=== PATIENT | female | born 1985 | race Caucasian/White ===

== ENCOUNTER 2016-07-22 20:44 | Emergency (ER) | payer OTHER ==
[~2016-07-22] VITALS: Ht 162.6 cm; Wt 59.0 kg
[~2016-07-22 20:44] MED LIST: ADACEL IM; HYDRALAZINE HCL25 MG PO; IBUPROFEN800 M1 PO; IBUPROFEN800 MG PO; MOTRIN800 MG PO; NOR-QD0.35 MG PO; OMNICEF300 MG PO; PERCOCET 325 MG1 TA2 PO; PREDNISOLO15 MG/5 M1 PO; PRENATAL1 TA2 PO; REGLAN10 M1 PO; RHINOCORT0.032 MG/2 NASB; TRAMADOL HCL50 M1 PO; TRAMADOL50 MG PO; ZOFRAN 4 MG TABL4 MG PO; ZOFRAN ODT4 MG PO; ZOFRAN4 M1 SL
[2016-07-22] MEDS ORDERED: BUSPIRONE HCL7.5 M1 PO (21:08)
[2016-07-22] MEDS ORDERED: LORATADINE10 M1 PO (21:08)
[2016-07-22] MEDS ORDERED: CLONAZEPAM0.5 M2 PO (21:09)
[2016-07-22] MEDS ORDERED: FLUTICASONE P15.8 ML (21:09)
[2016-07-22] MEDS ORDERED: TRAZODONE HCL50 M1 (21:09)
[2016-07-22] MEDS ORDERED: MIRENA1 EACH (21:09)
--- NOTE | 2016-07-22 21:22 | ED GI/GU/ABDOMINAL COMPLAINT ---
History of Present Illness General Chief Complaint: Female Urogenital Problems Stated Complaint: ?UPPER BACK PAIN/BLOOD IN URINE Source: patient, old records Exam Limitations: no limitations Vital Signs & Intake/Output Vital Signs & Intake/Output Vital Signs Date Time Temp Pulse Resp B/P B/P Pulse O2 O2 Flow FiO2 Mean Ox Delivery Rate 07/22 2053 98.3 83 18 113/79 96 Room Air Allergies Coded Allergies: latex (Intermediate, SWELLING AND RASH 05/02/15) Penicillins (YEAST INFECTION - SEVERE 07/22/16) divalproex sodium (NAUSEA 05/02/15) Reconcile Medications Buspirone HCl 7.5 MG TABLET 1 TAB PO BID MENTAL HEALTH (Reported) Clonazepam 0.5 MG TABLET 1 TAB PO PRN ANXIETY (Reported) Fluticasone Propionate (Unknown Strength) SPRAY.SUSP (Unknown Dose) UNKNOWN ( Reported) HYDRALAZINE HCL (Hydralazine HCl) 25 MG TABLET 1 TAB PO BID BLOOD PRESSURE Ibuprofen (Motrin) 800 MG TAB 1 TAB PO TID PRN PAIN Ibuprofen 800 MG TABLET 1 TAB PO Q8 PRN PAIN/fevers Levonorgestrel (Mirena) 20 MCG/24 HOUR (5 YEARS) IUD CONTROL (Reported) Loratadine 10 MG TABLET 1 TAB PO DAILY ALLERGIES (Reported) Metoclopramide HCl (Reglan) 10 MG TABLET 1 TAB PO TID PRN nausea 30 minutes before meals and bedtime Norethindrone (Nor-Qd) 0.35 MG TAB 1 TAB PO DAILY BC (Reported) Norethindrone (Nor-Qd) 0.35 MG TAB 2 TAB PO DAILY DUB Ondansetron (Zofran Odt) 4 MG ODT 1 TAB SL Q8HR PRN NAUSEA Ondansetron (Zofran Odt) 4 MG ODT 1 TAB PO Q8P PRN NAUSEA OXYCODONE HCL/ACETAMINOPHEN (Percocet 5-325 MG Tablet) 325 MG/5 MG TAB 1 TAB PO Q4-6 PRN PRN PAIN OXYCODONE HCL/ACETAMINOPHEN (Percocet 5-325 MG Tablet) 325 MG/5 MG TAB 1-2 TAB PO Q4-6 PRN PRN PAIN Tramadol HCl 50 MG TABLET 1-2 TAB PO Q8 PRN pain Trazodone HCl (Unknown Strength) TABLET (Unknown Dose) UNKNOWN (Reported) Triage Note: PT TO ED C/O RT FLANK PAIN, HEMATURIA AND "PAIN IN BLADDER" FOR 1 HR. PMH OF KIDNEY STONES Triage Nurses Notes Reviewed? yes ? N Is pt currently ? No HPI: Patient woke up from a nap this afternoon, it is very usual for her to take a nap during the day, and she noticed some discomfort in her right flank that was radiating towards her bladder. Patient then went to the bathroom and noticed hematuria with clots. There are no fevers or chills. She has crampy pain in her right CVA area and a pressure sensation over her bladder. Positive urinary frequency and urgency. Positive dysuria. Positive hematuria. Slight nausea but no vomiting. No fevers or chills. She rates the pain as 3 out of 10. Past History Travel History Traveled to [place] past 21 day No Medical History Any Pertinent Medical History? 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 FH: CAD (coronary artery disease) MOTHER FH: diabetes in MATERNAL GRANDMOTHER FH: breast cancer FH: CAD (coronary artery disease) PATERNAL GRANDMOTHER Hx Contributory? No Review of Systems Review of Systems Constitutional: Reports: see HPI, chills. EENTM: Reports: no symptoms. Respiratory: Reports: no symptoms. Cardiovascular: Reports: no symptoms. GI: Reports: see HPI, abdominal pain, nausea. Genitourinary: Reports: see HPI, dysuria, hematuria, urgency. Musculoskeletal: Reports: see HPI, back pain. Skin: Reports: no symptoms. Neurological/Psychological: Reports: no symptoms. Hematologic/Endocrine: Reports: no symptoms. Immunologic/Allergic: Reports: no symptoms. All Other Systems: Reviewed and Negative Physical Exam Physical Exam General Appearance: well developed/nourished, alert, awake Head: atraumatic, normal appearance Eyes: Bilateral: PERRL, EOMI. Ears, Nose, Throat, Mouth: hearing grossly normal, moist mucous membrane Neck: normal inspection, supple, full range of motion Respiratory: normal breath sounds, chest non-tender, no respiratory distress, lungs clear Cardiovascular: regular rate/rhythm, normal peripheral pulses Gastrointestinal: normal bowel sounds, soft, non-tender, no organomegaly Back: CVA tenderness (R) Extremities: normal range of motion Neurologic/Psych: no motor/sensory deficits, awake, alert, oriented x 3, normal mood/affect Skin: intact, normal color, warm/dry Core Measures ACS in differential dx? No Severe Sepsis Present: No Septic Shock Present: No Progress Differential Diagnosis: ectopic , intrauterine , kidney stone, threatened AB, UTI/pyelo Plan of Care: Orders Procedure Date/time Status URINE 07/23 2047 Complete URINALYSIS 07/23 2047 Complete Current Medications Sig/Dariana Start time Last Medication Dose Stop Time Status Admin Sodium Chloride 1,000 ML BOLUS ONE 07/22 2129 AC 07/22 (Normal Saline 0.9%) 07/22 Laboratory Tests 07/22/162103: Urinalysis LIGHT H, Urine Color YEL, Urine Clarity CLDY H, Urine pH 6.0, Ur Specific [place] >= 1.030, Urine Protein 100 H, Urine Ketones NEG, Urine Nitrite POS H, Urine Bilirubin NEG, Urine Urobilinogen 1.0, Ur Leukocyte Esterase MOD H, Ur Microscopic SEDIMENT EXAMINED, Urine RBC 50-75 H, Urine WBC > 75 H, Ur Epithelial Cells FEW, Urine Bacteria PACKD H, Urine Mucus MOD H, Urine Hemoglobin LARGE H, Urine Glucose NEG, Urine Test NEGATIVE Diagnostic Imaging: Viewed by Me: CT Scan. Discussed w/RAD: CT Scan. Radiology Impression: PATIENT: CHUCK VEGA PRESENT AGE: 30 PATIENT ACCOUNT NO: [id number] : 83 LOCATION: [facility] ORDERING PHYSICIAN: RICHARD WALKER MD SERVICE DATE: 07/22/16-2128 EXAM TYPE: CAT - CT ABD & PELVIS W/O IV CONTRAS EXAMINATION: CT ABDOMEN AND PELVIS WITHOUT CONTRAST CLINICAL INFORMATION: Right flank pain COMPARISON: 10/17/2015 TECHNIQUE : Multidetector volumetric imaging was performed from the superior aspect of the liver through the pubic symphysis. Sagittal and coronal reformatted images were obtained on the technologist's workstation. DLP: 255 mGy-cm FINDINGS: LUNG BASES : The visualized lung bases are unremarkable. LIVER, GALLBLADDER, AND BILIARY TREE: The liver is normal in size, shape, and attenuation. No focal hepatic lesion or biliary ductal dilatation is present. The gallbladder is contracted with no evidence of radiopaque gallstones, gallbladder wall thickening, or obvious pericholecystic inflammatory changes. PANCREAS: Unremarkable. SPLEEN: Unremarkable. ADRENAL GLANDS: Unremarkable. KIDNEYS AND URETERS: The kidneys are normal in size, shape, and attenuation. No hydronephrosis or hydroureter. No perinephric stranding. There is a 0.2 cm right midpole calculus 5 cm from the posterior axillary line. No additional renal calculi. BLADDER: Unremarkable. GASTROINTESTINAL TRACT: The stomach and small bowel are unremarkable. No dilated loops of bowel or evidence of obstruction. No colonic wall thickening or inflammatory change. The appendix is not well seen. No free air or free fluid. ABDOMINAL WALL: No significant hernia is appreciated. LYMPH NODES: Normal. VASCULAR: Unremarkable. PELVIC VISCERA: An IUD is in place. No adnexal mass. OSSEOUS STRUCTURES: No acute or suspicious osseous abnormality. IMPRESSION: No hydronephrosis. Tiny right midpole renal calculus. DICTATED BY: MARIIA ZHANG MD DATE/TIME DICTATED:07/22/162150 CONTRACT NEGOTIATION MANAGER:SANJUANA DATE/TIME TRANSCRIBED:07/22/162150 CONFIDENTIAL, DO NOT COPY WITHOUT APPROPRIATE AUTHORIZATION. <Electronically signed in Other Vendor System> SIGNED BY: LEATHA LICONA,MARIIA 07/22/16 2200 Initial ED EKG: none Departure Departure Disposition: HOME OR SELF CARE Condition: Stable Clinical Impression Primary Impression: Pyelonephritis Referrals: THAIS MEDINA APRN (PCP/Family) Additional Instructions: DRINK PLENTY OF FLUIDS TAKE ANTIBIOTICS PRESCRIBED TAKE ANTINAUSEA MEDICATION NEEDED RETURN FOR ANY CONCERNS Departure Forms: Customer Survey General Discharge Information Prescriptions: Current Visit Scripts Sulfamethoxazole/Trimethoprim (Bactrim Ds Tablet) 1 TAB PO BID #20 TAB Ondansetron (Zofran Odt) 1 TAB SL TID PRN NAUSEA #10 TAB
--- NOTE | 2016-07-22 22:00 | CT SCAN REPORT ---
EXAMINATION: CT ABDOMEN AND PELVIS WITHOUT CONTRAST CLINICAL INFORMATION: Right flank pain COMPARISON: 10/17/2015 TECHNIQUE: Multidetector volumetric imaging was performed from the superior aspect of the liver through the pubic symphysis. Sagittal and coronal reformatted images were obtained on the technologist's workstation. DLP: 255 mGy-cm FINDINGS: LUNG BASES: The visualized lung bases are unremarkable. LIVER, GALLBLADDER, AND BILIARY TREE: The liver is normal in size, shape, and attenuation. No focal hepatic lesion or biliary ductal dilatation is present. The gallbladder is contracted with no evidence of radiopaque gallstones, gallbladder wall thickening, or obvious pericholecystic inflammatory changes. PANCREAS: Unremarkable. SPLEEN: Unremarkable. ADRENAL GLANDS: Unremarkable. KIDNEYS AND URETERS: The kidneys are normal in size, shape, and attenuation. No hydronephrosis or hydroureter. No perinephric stranding. There is a 0.2 cm right midpole calculus 5 cm from the posterior axillary line. No additional renal calculi. BLADDER: Unremarkable. GASTROINTESTINAL TRACT: The stomach and small bowel are unremarkable. No dilated loops of bowel or evidence of obstruction. No colonic wall thickening or inflammatory change. The appendix is not well seen. No free air or free fluid. ABDOMINAL WALL: No significant hernia is appreciated. LYMPH NODES: Normal. VASCULAR: Unremarkable. PELVIC VISCERA: An IUD is in place. No adnexal mass. OSSEOUS STRUCTURES: No acute or suspicious osseous abnormality. IMPRESSION: No hydronephrosis. Tiny right midpole renal calculus.
[2016-07-22] MEDS ORDERED: ZOFRAN ODT4 M1 SL (22:09)
[2016-07-22] MEDS ORDERED: BACTRIM DS TAB1 EACH PO (22:09)
[2016-07-22 22:19] VITALS: BP 114/79
== END 2016-07-22 22:27 ==
LOC: ERH 20:44
DX: R10.31 Right lower quadrant pain (principal); N12 Tubulo-interstitial nephritis, not specified as acute or chronic
CPT/HCPCS: 74176; 81001; 81025; 96374; 96375; J0696; J1885; J2405

== ENCOUNTER 2016-08-03 08:22 | Emergency (ER) | payer OTHER ==
[~2016-08-03] VITALS: Ht 162.6 cm; Wt 59.0 kg
[~2016-08-03 08:22] MED LIST changes: +BACTRIM DS TAB1 EACH PO; +BUSPIRONE HCL7.5 M1 PO; +CLONAZEPAM0.5 M2 PO; +FLUTICASONE P15.8 ML; +LORATADINE10 M1 PO; +MIRENA1 EACH; +TRAZODONE HCL50 M1; +ZOFRAN ODT4 M1 SL
--- NOTE | 2016-08-03 08:53 | ED GI/GU/ABDOMINAL COMPLAINT ---
History of Present Illness General Chief Complaint: Abdominal Pain/Flank Pain Stated Complaint: FLANK PAIN Source: patient Exam Limitations: no limitations Vital Signs & Intake/Output Vital Signs & Intake/Output Vital Signs Date Time Temp Pulse Resp B/P B/P Pulse O2 O2 Flow FiO2 Mean Ox Delivery Rate 08/03 1139 96.8 78 18 114/69 99 Room Air 08/03 0840 97.0 87 18 117/81 98 Room Air Allergies Coded Allergies: latex (Intermediate, SWELLING AND RASH 05/02/15) Penicillins (YEAST INFECTION - SEVERE 07/22/16) divalproex sodium (NAUSEA 05/02/15) Reconcile Medications Buspirone HCl 7.5 MG TABLET 1 TAB PO BID MENTAL HEALTH (Reported) Clonazepam 0.5 MG TABLET 1 TAB PO PRN ANXIETY (Reported) Fluconazole (Diflucan) 150 MG TABLET 1 TAB PO ONCE yeast infection Ibuprofen 800 MG TABLET 1 TAB PO Q8 PRN PAIN/fevers Levonorgestrel (Mirena) 20 MCG/24 HOUR (5 YEARS) IUD CONTROL (Reported) Loratadine 10 MG TABLET 1 TAB PO DAILY ALLERGIES (Reported) Naproxen (Naprosyn) 500 MG TABLET 1 TAB PO BID PRN pain Triage Note: C/O MID BACK PAIN WITH NAUSEA SINCE LAST PM. STATES SHE HAD A RECENT KIDNEY INFECTION (07/22) WITH A SMALL STONE INF R KIDNEY. STATES SHE WAS UP ALL NIGHT WITH PAIN. FINISHED ABX 2 DAYS AGO, NOW THINKS SHE HAS YEAST INFECTION. Triage Nurses Notes Reviewed? yes ? n Is pt currently ? No Onset: Gradual Duration: worse persistent since (2 days) Timing: recent history Quality/Severity: moderate Severity Numbers: 7 Location: back Radiation: no radiation Activities at Onset: none No Modifying Factors: none HPI: Patient is a 30-year-old female with history of Graves' disease, kidney stones presenting to the emergency department with chief complaint of bilateral mid back pain that's been going on for the past 2 days. She reports that she was seen and evaluated here approximately 12 days ago, diagnosed with pyelonephritis , treated with Bactrim for 10 days. Last dose of antibiotics was 2 days ago. She was feeling improved, yesterday started with back pain. Denies any urinary frequency urgency or dysuria. Denies any abdominal pain. Positive nausea without vomiting. History of kidney stones in the past, last saw her urologist about a year ago. They did a CT scan on her while she was here 10 days ago and she was told that she has a kidney stone in the right kidney. Decreased by mouth intake today. Denies any chest pain palpitations or shortness of breath. No lower extremity weakness. Denies any trauma. 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 Unsure if this is related to the back pain. Past History Travel History Traveled to [place] past 21 day No Medical History Any Pertinent Medical History? 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 FH: CAD (coronary artery disease) MOTHER FH: diabetes in MATERNAL GRANDMOTHER FH: breast cancer FH: CAD (coronary artery disease) PATERNAL GRANDMOTHER Hx Contributory? No Review of Systems Review of Systems Constitutional: Reports: no symptoms. Comments Review of systems: See HPI, All other systems negative. Constitutional, no chills fever or weight loss HEENT: No visual changes no sore throat no congestion Cardiovascular: No chest pain ,palpitation , orthopnea Skin, no jaundice no rashes Respiratory: No dyspnea cough sputum or hemoptysis GI: no vomiting : No dysuria No hematuria Muscle skeletal: no neck pain, Neurologic: No numbness no confusion no weakness, no amador Psych: No stress anxiety or depression,. Heme/endocrine: No bruising no bleeding no polyuria or polydipsia Immunology: No splenectomy or history of AIDS Physical Exam Physical Exam General Appearance: well developed/nourished, no apparent distress, alert, awake , comfortable Gastrointestinal: normal bowel sounds, soft, non-tender Comments: Well-developed well-nourished person in no acute distress HEENT: Pupils equally round and reactive to light and accommodation. Nose is atraumatic. Pharynx normal. No swelling or edema. Neck: Supple, no lymphadenopathy, normal range of motion without pain or tenderness Back: Right CVA tenderness. Full range of motion, mild tenderness to palpation over the lumbar paraspinal muscles bilaterally. Cardiovascular: Regular rate and rhythms no murmurs rubs or gallops, normal JVP Respiratory: Chest nontender. No respiratory distress.breath sounds clear to auscultation bilaterally Abdomen: Soft, nontender nondistended, no appreciable organomegaly. Normal bowel sounds. No ascites gu: deffered Extremity: No edema Neuro: Alert oriented x3, motor sensory normal Skin: No appreciable rash on exposed skin, skin is warm and dry. Psych: Mood and affect is normal, memory and judgment is normal. Core Measures ACS in differential dx? No Severe Sepsis Present: No Septic Shock Present: No Progress Differential Diagnosis: muscle strain, herniated disc, renal colic, nephrolithiasis, pyelonephritis, hydronephrosis, dehydration, constipation Plan of Care: Orders Procedure Date/time Status Add-on Test (ER Only) 08/03 0932 Active URINE 08/03 0852 Complete CULTURE,URINE 08/03 0848 Active COMPREHENSIVE METABOLIC PANEL 08/03 0845 Complete CBC WITHOUT DIFFERENTIAL 08/03 0845 Complete URINALYSIS 08/03 0844 Complete Current Medications Sig/Dariana Start time Last Medication Dose Stop Time Status Admin Morphine Sulfate 4 MG ONCE ONE 08/03 1100 CAN (Morphine) 08/03 1101 Laboratory Tests 08/03/16 0850: Anion Gap 10, Estimated GFR > 60, BUN/Creatinine Ratio 23.8, Glucose 83, Calcium 9.8, Total Bilirubin 1.1, AST 24, ALT 37, Alkaline Phosphatase 74, Total Protein 7.2, Albumin 4.7, Globulin 2.5, Albumin/Globulin Ratio 1.9, CBC w Diff NO MAN DIFF REQ, RBC 4.96, MCV 95.3, MCH 31.9 H, RDW 12.5, MPV 7.8, Gran % 58.6, Lymphocytes % 30.8, Monocytes % 6.7, Eosinophils % 3.2, Basophils % 0.7, Absolute Granulocytes 3.5, Absolute Lymphocytes 1.9, Absolute Monocytes 0.4, Absolute Eosinophils 0.2, Absolute Basophils 0, PUBS MCHC 33.5 08/03/16 0848: Urine Test NEGATIVE 08/03/16 0848: Urinalysis LIGHT H, Urine Color YEL, Urine Clarity HAZY H, Urine pH 6.5, Ur Specific [place] 1.020, Urine Protein NEG, Urine Ketones NEG, Urine Nitrite NEG, Urine Bilirubin NEG, Urine Urobilinogen 0.2, Ur Leukocyte Esterase SMALL H, Ur Microscopic SEDIMENT EXAMINED, Urine RBC 1-3, Urine WBC 3-5 H, Ur Epithelial Cells MANY H, Urine Bacteria MANY H, Urine Mucus FEW, Urine Hemoglobin NEG, Urine Glucose NEG Microbiology 08/04 847 URINE ROUT: Urine Culture - RECD Diagnostic Imaging: Viewed by Me: Ultrasound. Discussed w/RAD: Ultrasound. Radiology Impression: PATIENT: CHUCK VEGA PRESENT AGE: 30 PATIENT ACCOUNT NO: [id number] : 83 LOCATION: [facility] ORDERING PHYSICIAN: DAFNE NERI SERVICE DATE: 08/03/16 EXAM TYPE: US - US-RENAL/KIDNEY EXAMINATION: US RETROPERITONEAL COMPLETE (RENAL) CLINICAL INFORMATION: Right-sided CVA tenderness, flank pain. History of urolithiasis.. COMPARISON: 05/24/2013 TECHNIQUE: Real-time imaging of the kidneys and bladder. Limited color Doppler imaging is included. Selected static images are provided for interpretation. FINDINGS: RIGHT KIDNEY: 11.5 x 4.3 x 4.8 cm (SAG x AP x TRV) . There are 2 2 to 3 mm bright reflectors in the midpole of the right kidney without posterior acoustic shadowing indeterminate for tiny calculi versus artifact. The kidney is otherwise normal in size, contour, and echogenicity. Renal cortical thickness is normal. No or focal parenchymal lesions. No hydronephrosis. LEFT KIDNEY: 10.1 x 4.6 x 4.5 cm (SAG x AP x TRV). A few scattered similar appearing punctate bright reflectors are identified in the right kidney also raising the question of small calculi, however findings are not definitive. These all measure 2 mm or less. The left kidney is otherwise normal in size, contour, and echogenicity. Renal cortical thickness is normal. No focal parenchymal lesions. No hydronephrosis. BLADDER: Mildly fluid-filled containing a small amount of dependent debris noted by the technologist to move on decubitus imaging. Bilateral ureteral jets are demonstrated. Volumes are not provided. IMPRESSION: Questionable tiny bilateral renal calculi. A single tiny right-sided calculus was identified on recent plain films. DICTATED BY: ANDRE LYNCH MD Initial ED EKG: none Comments: Patient feeling improved after IV fluids and medication. Patient eating without difficulty. She is informed of ultrasound results. No signs of [place]. Urinalysis is not a clean catch, we'll add on urine culture, holding off on providing antibiotics at this time. We will treat symptomatically. She is informed that although there is no signs of hydronephrosis there is a chance that she could have passed a small stone causing symptoms. She will follow-up with urology. Patient will also be treated for yeast infection likely caused from recent antibiotic use. Patient persisted with diffuse infections with antibiotics, did not report this to the previous provider, requesting prescription for Diflucan at this time. She will follow up with primary care physician or return for worsening symptoms. Departure Departure Time of Disposition: 1214 Disposition: HOME OR SELF CARE Condition: Stable Clinical Impression Primary Impression: Back pain Qualifiers: Back pain location: back pain in unspecified location Chronicity: unspecified Back pain laterality: bilateral Qualified Code: M54.9 - Dorsalgia, unspecified Secondary Impressions: Renal colic Referrals: THAIS MEDINA APRN (PCP/Family) Additional Instructions: Follow-up with your urologist, make an appointment. Increase fluids. Take naproxen as prescribed to help with pain. Return for worsening symptoms or concerns. Departure Forms: Customer Survey D/C INS-APPENDICITIS EXCLUSION General Discharge Information Prescriptions: Current Visit Scripts Naproxen (Naprosyn) 1 TAB PO BID PRN pain #20 TAB Fluconazole (Diflucan) 1 TAB PO ONCE #1 TAB Ref 1
[2016-08-03 09:07] LABS: ABSOLUTE BASOPHIL COUNT 0 /CUMM (0.0-0.2); ABSOLUTE EOSINOPHIL COUNT 0.2 /CUMM (0.0-0.7); ABSOLUTE GRANULOCYTE CT 3.5 /CUMM (1.4-6.5); ABSOLUTE LYMPH COUNT 1.9 /CUMM (1.2-3.4); ABSOLUTE MONOCYTE COUNT 0.4 /CUMM (0.10-0.60); BASOPHIL % 0.7 % (0.0-2.0); EOSINOPHIL % 3.2 % (0-5); GRANULOCYTE % 58.6 % (42.2-75.2); HEMATOCRIT 47.3 % (37-47); MEAN CORPUSCULAR HGB 31.9 PG (27.0-31.0); MEAN CORPUSCULAR HGB CONC 33.5 G/DL (33.0-37.0); MEAN CORPUSCULAR VOLUME 95.3 FL (81.0-99.0); MEAN PLATELET VOLUME 7.8 FL (7.4-10.4); PLATELET COUNT 220 /CUMM (130-400); RBC DISTRIBUTION WIDTH 12.5 % (11.5-14.5); RED BLOOD CELL CT 4.96 /CUMM (4.20-5.40)
[2016-08-03 11:39] VITALS: BP 114/69
--- NOTE | 2016-08-03 12:13 | ULTRASOUND REPORT ---
EXAMINATION: US RETROPERITONEAL COMPLETE (RENAL) CLINICAL INFORMATION: Right-sided CVA tenderness, flank pain. History of urolithiasis.. COMPARISON: 05/24/2013 TECHNIQUE: Real-time imaging of the kidneys and bladder. Limited color Doppler imaging is included. Selected static images are provided for interpretation. FINDINGS: RIGHT KIDNEY: 11.5 x 4.3 x 4.8 cm (SAG x AP x TRV). There are 2 2 to 3 mm bright reflectors in the midpole of the right kidney without posterior acoustic shadowing indeterminate for tiny calculi versus artifact. The kidney is otherwise normal in size, contour, and echogenicity. Renal cortical thickness is normal. No or focal parenchymal lesions. No hydronephrosis. LEFT KIDNEY: 10.1 x 4.6 x 4.5 cm (SAG x AP x TRV). A few scattered similar appearing punctate bright reflectors are identified in the right kidney also raising the question of small calculi, however findings are not definitive. These all measure 2 mm or less. The left kidney is otherwise normal in size, contour, and echogenicity. Renal cortical thickness is normal. No focal parenchymal lesions. No hydronephrosis. BLADDER: Mildly fluid-filled containing a small amount of dependent debris noted by the technologist to move on decubitus imaging. Bilateral ureteral jets are demonstrated. Volumes are not provided. IMPRESSION: Questionable tiny bilateral renal calculi. A single tiny right-sided calculus was identified on recent plain films.
[2016-08-03] MEDS ORDERED: NAPROSYN500 M1 PO (12:17)
[2016-08-03] MEDS ORDERED: DIFLUCAN150 M1 PO (12:22)
== END 2016-08-03 12:32 ==
LOC: ERH 08:22
PROVIDERS: Emergency Medicine
DX: M54.5 Low back pain (principal); N23 Unspecified renal colic
CPT/HCPCS: 76775; 81001; 81025; 87086; 96374; 96375; J1885; J2405

== ENCOUNTER 2016-08-08 18:26 | Emergency (ER) | payer OTHER ==
[~2016-08-08] VITALS: Ht 162.6 cm; Wt 59.0 kg
[~2016-08-08 18:26] MED LIST changes: +DIFLUCAN150 M1 PO; +NAPROSYN500 M1 PO
[2016-08-08] MEDS ORDERED: FLOMAX0.4 M1 PO (18:42)
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
--- NOTE | 2016-08-08 19:35 | RADIOLOGY REPORT ---
EXAMINATION: XR HAND, RIGHT CLINICAL INFORMATION: Right hand pain. COMPARISON: None. TECHNIQUE: AP, lateral, and oblique views of the right hand. FINDINGS: The bones and soft tissues appear unremarkable. No fracture. Alignment is anatomic. Joint spaces are maintained. No erosions or soft tissue calcifications. IMPRESSION: No acute osseous or articular abnormality of the right hand. Specifically, there is no acute fracture or dislocation of the right hand. Soft tissues appear unremarkable. Joint spaces are grossly preserved.
[2016-08-08 19:53] VITALS: BP 126/73
== END 2016-08-08 19:56 ==
LOC: ERH 18:26
DX: M79.641 Pain in right hand (principal)
CPT/HCPCS: 73130-RT

== ENCOUNTER 2017-07-13 16:07 | Emergency (ER) | payer OTHER ==
[~2017-07-13] VITALS: Ht 165.1 cm; Wt 61.2 kg
[~2017-07-13 16:07] MED LIST changes: +FLOMAX0.4 M1 PO; +MAGNESIUM400 M1 PO
--- NOTE | 2017-07-13 16:57 | ED GENERAL ADULT ---
History of Present Illness General Chief Complaint: Chest Pain Stated Complaint: CP Source: patient Exam Limitations: no limitations Vital Signs & Intake/Output Vital Signs & Intake/Output Vital Signs Date Time Temp Pulse Resp B/P B/P Pulse O2 O2 Flow FiO2 Mean Ox Delivery Rate 07/13 1908 98.2 70 16 122/70 98 Room Air Room Air 07/14 1907 98 Room Air Room Air 07/13 1656 98.0 64 20 121/91 99 Room Air The patient was treated with IV Tylenol and IV Ativan. Labs were sent and a chest x-ray was ordered, Allergies Coded Allergies: latex (Intermediate, SWELLING AND RASH 05/02/15) Penicillins (YEAST INFECTION - SEVERE 07/22/16) divalproex sodium (NAUSEA 05/02/15) Reconcile Medications Buspirone HCl 7.5 MG TABLET 1 TAB PO BID MENTAL HEALTH (Reported) Clonazepam 0.5 MG TABLET 1 TAB PO PRN ANXIETY (Reported) Levonorgestrel (Mirena) 20 MCG/24 HOUR (5 YEARS) IUD CONTROL (Reported) Loratadine 10 MG TABLET 1 TAB PO DAILY ALLERGIES (Reported) Magnesium Oxide (Magnesium) 400 MG CAPSULE 1 CAP PO DAILY SUPPLEMENTS Naproxen (Naprosyn) 500 MG TABLET 1 TAB PO BID PRN pain Ondansetron (Zofran Odt) 4 MG TAB.RAPDIS 1 TAB SL TID PRN NAUSEA Tamsulosin HCl (Flomax) 0.4 MG CAP.ER.24H 1 CAP PO DAILY KIDNEY STONE ( Reported) Triage Nurses Notes Reviewed? yes Onset: Abrupt Duration: hour(s): Timing: recent history HPI: 07/13/17 4:54 PM 31-year-old female presents to the emergency department complaining of chest pain. The patient states she was in her usual state of health until earlier today when approximately 3 hours ago she developed retrosternal chest pain. She also admits to palpitations. She denies shortness of breath. She denies fever. She says she has a past medical history of a: "Leaky heart valve". She says that she was seen by frit mixer and burner and workup was negative. Now she presents with ongoing chest pain and palpitations. Past History Medical History Any Pertinent Medical History? 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 FH: CAD (coronary artery disease) MOTHER FH: diabetes in MATERNAL GRANDMOTHER FH: breast cancer FH: CAD (coronary artery disease) PATERNAL GRANDMOTHER Hx Contributory? No Review of Systems Review of Systems Constitutional: Denies: fever. EENTM: Reports: no symptoms. Respiratory: Reports: no symptoms. Cardiovascular: Reports: chest pain. GI: Denies: abdominal pain. Genitourinary: Reports: no symptoms. Musculoskeletal: Reports: no symptoms. Skin: Reports: no symptoms. Neurological/Psychological: Reports: no symptoms. Hematologic/Endocrine: Reports: no symptoms. Physical Exam Physical Exam General Appearance: alert, awake, anxious, moderate distress Head: atraumatic, normal appearance Eyes: Bilateral: normal appearance, PERRL, EOMI. Ears, Nose, Throat: normal pharynx, normal ENT inspection Neck: normal inspection, supple Respiratory: normal breath sounds, chest non-tender, no respiratory distress Cardiovascular: regular rate/rhythm Peripheral Pulses: 4+ radial (R), 4+ radial (L) Gastrointestinal: soft, non-tender Back: normal range of motion Extremities: no edema Neurologic/Psych: no motor/sensory deficits, awake, alert, oriented x 3 Skin: intact, normal color, warm/dry Core Measures ACS in differential dx? No CVA/TIA Diagnosis: No Sepsis Present: No Sepsis Focused Exam Completed? No Progress Differential Diagnoses I considered the following diagnoses in my evaluation of the patient: [Acute coronary syndrome, pulmonary embolism, costochondritis, anxiety, pneumothorax, asthma] Plan of Care: Orders Procedure Date/time Status TROPONIN LEVEL 07/13 183 Complete EKG 07/13 183 Active Saline Lock 07/13 165 Active Add-on Test (ER Only) 07/13 165 Active URINE 07/13 1646 Complete URINALYSIS 07/13 164 Complete TROPONIN LEVEL 07/13 164 Complete D-DIMER 07/13 164 Complete COMPREHENSIVE METABOLIC PANEL 07/13 164 Complete CBC WITHOUT DIFFERENTIAL 07/13 1645 Complete EKG 07/13 1629 Active Current Medications Sig/Dariana Start time Last Medication Dose Stop Time Status Admin Ketorolac 30 MG ONCE ONE 07/13 1700 CAN Tromethamine 07/13 1701 (Toradol) Laboratory Tests 07/13/17 1848: Troponin I < 0.01 07/13/17 171: Urine Color STRAW, Urine Clarity CLEAR, Urine pH 7.0, Ur Specific [place] 1.010, Urine Protein NEG, Urine Ketones NEG, Urine Nitrite NEG, Urine Bilirubin NEG, Urine Urobilinogen 0.2, Ur Leukocyte Esterase TRACE H, Ur Microscopic SEDIMENT EXAMINED, Urine WBC RARE, Ur Epithelial Cells MOD H, Urine Crystals RARE CA OX, Urine Bacteria RARE H, Urine Hemoglobin NEG, Urine Glucose NEG, Urine Test NEGATIVE 07/13/17 171: Anion Gap 12, Estimated GFR > 60, BUN/Creatinine Ratio 18.6, Glucose 86, Calcium 9.7, Total Bilirubin 0.5, AST 23, ALT 32, Alkaline Phosphatase 75, Troponin I < 0.01, Total Protein 6.7, Albumin 4.5, Globulin 2.2, Albumin/Globulin Ratio 2.0, D-Dimer High Sensitivty < 200, CBC w Diff NO MAN DIFF REQ, RBC 4.83, MCV 92.8, MCH 31.4 H, MCHC 33.8, RDW 12.8, MPV 9.2, Gran % 49.1, Lymphocytes % 41.2, Monocytes % 5.7, Eosinophils % 3.4, Basophils % 0.6, Absolute Granulocytes 4.0, Absolute Lymphocytes 3.4, Absolute Monocytes 0.5, Absolute Eosinophils 0.3, Absolute Basophils 0 Initial ED EKG: NSR Prior EKG: unchanged Departure Departure Disposition: STILL A PATIENT Condition: Stable Clinical Impression Primary Impression: Chest pain Referrals: Derrek Martin APRN (PCP/Family) Departure Forms: Customer Survey General Discharge Information Comments His labs, chest x-ray and EKG were unremarkable. Repeat EKG was unchanged. She declined repeat troponin and risks were explained. She says she's been intermittently getting this pain for months. She was discharged and instructed to follow-up with her frit mixer and burner this week Critical Care Note Critical Care Note Critical Care Time: non-applicable
[2017-07-13 17:36] LABS: ABSOLUTE BASOPHIL COUNT 0 /CUMM (0.0-0.2); ABSOLUTE EOSINOPHIL COUNT 0.3 /CUMM (0.0-0.7); ABSOLUTE LYMPH COUNT 3.4 /CUMM (1.2-3.4); ABSOLUTE MONOCYTE COUNT 0.5 /CUMM (0.10-0.60); BASOPHIL % 0.6 % (0.0-2.0); EOSINOPHIL % 3.4 % (0-5); GRANULOCYTE % 49.1 % (42.2-75.2); HEMATOCRIT 44.8 % (37-47); MEAN CORPUSCULAR HGB 31.4 PG (27.0-31.0); MEAN CORPUSCULAR HGB CONC 33.8 G/DL (33.0-37.0); MEAN CORPUSCULAR VOLUME 92.8 FL (81.0-99.0); MEAN PLATELET VOLUME 9.2 FL (7.4-10.4); PLATELET COUNT 216 /CUMM (130-400); RBC DISTRIBUTION WIDTH 12.8 % (11.5-14.5); RED BLOOD CELL CT 4.83 /CUMM (4.20-5.40); WHITE BLOOD CELL COUNT 8.1 /CUMM (4.8-10.8)
--- NOTE | 2017-07-13 18:20 | RADIOLOGY REPORT ---
EXAMINATION: CHEST 2 VIEWS CLINICAL INFORMATION: Chest.. COMPARISON: 08/06/2014. TECHNIQUE: PA and lateral views of the chest obtained. FINDINGS: The lungs are well expanded. No focal infiltrate, effusion, edema, or pneumothorax. Cardiac and mediastinal silhouettes are within normal limits for technique. No acute bony abnormality seen IMPRESSION: No evidence of acute disease
[2017-07-13 19:09] VITALS: BP 122/70
== END 2017-07-13 19:10 ==
LOC: ERH 16:07
PROVIDERS: Physician Assistant Medical
DX: R07.89 Other chest pain (principal)
CPT/HCPCS: 71046; 81001; 81025; 93005; 93010; J1885